=== PATIENT | female | born 1975 | race Caucasian/White ===

== ENCOUNTER 2016-10-02 16:22 | Outpatient (CLI) | payer BC ==
[2016-10-02 17:00] VITALS: BMI 26.9
== END 2016-10-02 17:48 | disposition home or self-care (01) ==
LOC: FBCOUT 16:22 → FBC 16:23 → FBCOUT 17:48
PROVIDERS: ATTEND Family Medicine
DX: O09.523 Supervision of elderly multigravida, third trimester (principal); Z3A.37 37 weeks gestation of pregnancy

== ENCOUNTER 2016-10-09 16:14 | Outpatient (CLI) | payer BC ==
[2016-10-09 17:19] VITALS: BMI 19.4
== END 2016-10-09 16:50 | disposition home or self-care (01) ==
LOC: FBCOUT 16:14 → FBC 16:16 → FBCOUT 16:50
PROVIDERS: ATTEND Family Medicine
DX: O09.523 Supervision of elderly multigravida, third trimester (principal); Z3A.38 38 weeks gestation of pregnancy

== ENCOUNTER 2016-10-15 07:03 | Inpatient (IN) | payer BC ==
[2016-10-15] MEDS ORDERED: OXYTOCIN IN NS 334 ML IV PRN (07:14)
[2016-10-15 08:03] VITALS: BMI 27.5
[2016-10-15] MEDS ORDERED: PUMP TUBING ONE (08:08)
[2016-10-15] MEDS ORDERED: SODIUM CHLORIDE 0.9% FLUSH 10 ML ONE (08:08)
[2016-10-15] MEDS ORDERED: OXYTOCIN 10 UNITS/ML VIAL ONE (08:08)
[2016-10-15] MEDS ORDERED: LIDOCAINE 1% (PRES FREE) 30 ML VIAL ONE (08:08)
[2016-10-15] MEDS ORDERED: MINERAL OIL 25 ML BOT ONE (08:08)
[2016-10-15] MEDS ORDERED: LIDOCAINE Viscous 2% 15 ML UDCUP ONE (08:08)
[2016-10-15] MEDS ORDERED: IV START KIT ONE (08:08)
[2016-10-15] MEDS ORDERED: OXYTOCIN IN NS 500 ML IV ONE (08:09)
[2016-10-15] MEDS: MISOPROSTOL 25 MCG TABLET VG SCH ×4 (09:24→19:49)
[2016-10-15 09:28] LABS: HEMOGLOBIN 10.8 gm/l (12.0-16.0); MEAN CORPUSCULAR HGB CONC 33.8 g/dl (33.0-37.0); RED CELL DISTRIBUTION WIDTH 12.9 % (11.5-14.5)
--- NOTE | 2016-10-15 11:39 | PCMAN ---
OB Admission Note - History : 7 Term: 5 : 0 Abortions (S&E): 1 Livin EDC:: 10/20/16 Gestational Age (weeks): 39 Days (#/7): 2 Admit Cervical Dilation:: .5 Admit Cervical Effacement (%):: 50 Admit Station:: -3 Admit Presentaton:: vtx Membrane Status: Intact Contractions: No Heart Rate:: 145 Status:: category 1 EFW:: 7.5 - Labs Blood Type: O (+) positive Hct/Hgb:: 32/10.8 Rubella Status: Immune GBS Status: Negative Abnormal Labs: None - Physical Exam General: Afebrile, No Acute Distress Psych/Mental Status: Mood/Affect Appropriate Neurological: Grossly Intact, Alert, Oriented x 4, Normal Speech HEENT: Atraumatic, PERRLA, EOMI, Mucous membr. moist/pink Lungs: Clear to Auscultation Bilaterally Cardiovascular: Regular Rate and Rhythm, No Murmur Abdomen: Normal Bowel Sounds Genitourinary: Normal Female Genitalia, No Edema Extremities: Full ROM, Other (varicose veins), No Edema DTR: Patellar (L): 2+ (Brisk, Normal), Patellar (R): 2+ (Brisk, Normal) Skin: Normal Color, No Rash - Problems (1) with 39 completed weeks gestation Status: Acute Code: Z3A.39Assessment/Plan: Induction for AMA in multip, uncomplicated (2) Advanced maternal age in multigravida Status: Acute Code: O09.529Assessment/Plan: Induction with Cytotec, eventually Pitocin (3) Grand multipara Status: Acute Code: Z64.1Assessment/Plan: Risk for PP hemorrhage, active management of 3rd stage planned.
--- NOTE | 2016-10-15 19:07 | PDOC36 ---
Provider Note Subject: S/Contractions feeling more intense, not very painful yet. O/VSS Afeb, FHR category 1 Cervix 2/50%/-2/mid/medium, membranes stripped but not ruptured Villar=5 A/Some progress with the Cytotec but not in active labor yet P/Pitocin per protocol. AROM when her contractions are more regular and painful MD Lashawn
[2016-10-15] MEDS: LACTATED RINGERS 1,000 ML IV SCH (19:35)
[2016-10-15] MEDS: OXYTOCIN IN NS 500 ML IV PRN ×2 (19:35→23:47)
[2016-10-15] MEDS ORDERED: FENTANYL 100 MCG/2 ML VIAL IV PRN (22:16)
[2016-10-15] MEDS ORDERED: CALCIUM CARBONATE 500 MG TAB.CHEW PO PRN (22:17)
--- NOTE | 2016-10-15 22:20 | PDOC36 ---
Provider Note Subject: S/ Contractions getting more painful per patient, veins painful O/VSS Afeb, FHR 145 cat 1 Cervix 2cm/60%/-2/softer then prior exam AROM clear AF A/Early labor P/Expectant management, pain management, Mo bandage for vein compression in leg S MD Jalil
[2016-10-16] MEDS: MISOPROSTOL 25 MCG TABLET VG SCH (00:20)
[2016-10-16] MEDS: LACTATED RINGERS 1,000 ML IV SCH (01:37)
[2016-10-16] MEDS: OXYTOCIN IN NS 500 ML IV PRN (01:40)
[2016-10-16] MEDS ORDERED: LIDOCAINE 1% (PRES FREE) 30 ML VIAL IF ONE (02:07)
[2016-10-16] MEDS ORDERED: LANOLIN 50 APPLIC/7G TUBE TP PRN (02:38)
[2016-10-16] MEDS ORDERED: OXYTOCIN IN NS 167 ML IV PRN (02:38)
[2016-10-16] MEDS ORDERED: BENZOCAINE/MENTHOL 60 APPLIC/BOT TP PRN (02:38)
[2016-10-16] MEDS ORDERED: ACETAMINOPHEN 325 MG TABLET PO PRN (02:38)
[2016-10-16] MEDS ORDERED: CALCIUM CARBONATE 500 MG TAB.CHEW PO PRN (02:38)
[2016-10-16] MEDS ORDERED: LACTATED RINGERS 1,000 ML ONE (02:45)
--- NOTE | 2016-10-16 02:48 | PCMDEL ---
Delivery Note - Labor 1st stage (hr/min):: 1 hr/54 min 2nd stage (hr/min):: 5 min 3rd stage (hr/min):: 7 min Total (hr/min):: 2 hr/6 min Pushed (hr/min):: 5 min - Delivery Delivery (Date): 10/16/16 Delivery (Time): 01:54 Gender: Male Presentation: Cephalic Position: OA Umbilical Cord: 3 Vessel, Nuchal Cord Delayed Cord Clamping:: 2-3 min 1 Minute Total: 9 5 Minute Total: 9 Placenta:: intact EBL:: 150 ml Perineum:: 2nd degree perineal laceration Suture:: 3-0 chromic Anesthesia/Meds:: local for repair Length ROM:: 3 hr /46 min Comments:: Beautiful, uncomplicated delivery!
[2016-10-16] MEDS: IBUPROFEN 800 MG TABLET PO PRN ×4 (03:05→21:54)
[2016-10-16] MEDS: OXYCODONE HCL 5 MG TABLET PO PRN ×5 (08:04→21:53)
[2016-10-16] MEDS: DOCUSATE SODIUM 100 MG CAPSULE PO SCH (09:02)
[2016-10-16] MEDS: PRENATAL VIT/FE FUMARATE/FA 1 TABLET PO SCH (09:02)
[2016-10-17] MEDS: IBUPROFEN 800 MG TABLET PO PRN ×2 (03:43→10:35)
[2016-10-17 06:54] LABS: HEMATOCRIT 30.2 % (37.0-47.0); HEMOGLOBIN 10.2 gm/l (12.0-16.0)
[2016-10-17 07:34] VITALS: BP 98/54
--- NOTE | 2016-10-17 09:54 | PDOC39B ---
Hospital Course: ADMIT DATE: 10/15/16 DISCHARGE DATE: 10/16/16 ADMISSION DIAGNOSES: 39 1/2 week , Advance Maternal Age, Grand multiparity PROCEDURES: Spontaneous Vaginal Delivery HISTORY OF PRESENT ILLNESS: 41 year old G7 T5 L5 at 39 weeks 3 days presented for induction secondary to Advanced Maternal Age. SHe received 2 doses of cytotec followed by Pitocin and amniotomy and progressed to delivery without complication. HOSPITAL COURSE: The patient had an uncomplicated post course. By day of discharge the patient is ambulating, eating, voiding, and passing flatus without difficulty. Pain is controlled and lochia is appropriate. She is [] - Physical Exam Vital Signs: Temp Pulse Resp BP Pulse Ox 98.1 F 75 16 98/54 10/17/16 07:33 10/17/16 07:33 10/17/16 07:33 10/17/16 07:33 General: Afebrile, No Acute Distress Psych/Mental Status: Mood/Affect Appropriate Neurological: Grossly Intact, Alert, Oriented x 4, Normal Speech, Normal Reflexes HEENT: Atraumatic, PERRLA, EOMI, Mucous membr. moist/pink Lungs: Clear to Auscultation Bilaterally Cardiovascular: Regular Rate and Rhythm, No Murmur Breast: Soft, No Nipples Cracked Fundus: Firm, Midline, Below Umbilicus Abdomen: Normal Bowel Sounds Genitourinary: Normal Female Genitalia, No Edema Lochia: Light Extremities: Full ROM, No Edema Deep Tendon Reflexes: Patellar (L): 2+ (Brisk, Normal), Patellar (R): 2+ (Brisk , Normal) Skin: Normal Color, Warm, Dry, Intact, No Rash Wound: Well Approximated (perineal sutures intact with minimal swelling.) - Discharge Diagnosis (1) Normal vaginal delivery Status: AcuteAssessment/Plan: stable, discharge home with FU in 6 wks. (2) Perineal laceration during delivery, delivered Status: AcuteAssessment/Plan: healing well, wound care instructions given. - Discharge Plan Condition: Good Disposition: Home Instruction Forms: Vaginal Discharge Instructions Prescriptions: Ibuprofen [IBUPROFEN 800 MG TABLET (SHF)] 800 mg PO Q6H PRN #30 PRN Reason: Pain (Mild) Oxycodone HCl [ROXICODONE 5 MG IR TABLET (SHF)] 5 - 10 mg PO Q3H PRN #30 PRN Reason: Pain (Severe) Follow-Up: Orquidea Jimenes MD [Primary Care Provider] - In 6 weeks
[2016-10-17] MEDS: PRENATAL VIT/FE FUMARATE/FA 1 TABLET PO SCH (10:32)
[2016-10-17] MEDS: DOCUSATE SODIUM 100 MG CAPSULE PO SCH (10:32)
== END 2016-10-17 13:49 | disposition home or self-care (01) | DRG 775 ==
LOC: FBC 07:03
PROVIDERS: ADMIT Family Medicine; ATTEND Family Medicine
PROC: 3E0P7GC Introduction of Other Therapeutic Substance into Female Reproductive, Via Natural or Artificial Opening (ICD-10-PCS; 2016-10-15)
PROC: 10E0XZZ Delivery of Products of Conception, External Approach (ICD-10-PCS; principal; 2016-10-16)
PROC: 0KQM0ZZ Repair Perineum Muscle, Open Approach (ICD-10-PCS; 2016-10-16)
DX: O70.1 Second degree perineal laceration during delivery (principal); Z37.0 Single live birth; O09.43 Supervision of pregnancy with grand multiparity, third trimester; Z3A.39 39 weeks gestation of pregnancy